=== PATIENT | female | born 1965 | race Two or more races ===

== ENCOUNTER 2023-11-06 14:51 | Emergency (ER) | payer OTHER ==
[~2023-11-06] VITALS: Ht 160 cm; Wt 86.2 kg
[2023-11-06] MEDS ORDERED: GUAIFENESIN 200 MG/10 ML BLIST.PACK PO STA (16:24)
[2023-11-06] MEDS ORDERED: CEFTRIAXONE SODIUM 1,000 MG VIAL IM STA (16:24)
[2023-11-06] MEDS ORDERED: KETOROLAC TROMETHAMINE 30 MG VIAL IM STA (16:24)
== END 2023-11-06 16:47 | disposition home or self-care (01) ==
LOC: ER 14:52
DX: R53.81 Other malaise (principal); R05.9 Cough, unspecified
CPT/HCPCS: 96372; 99282; J0696; J1885

== ENCOUNTER 2025-07-24 18:06 | Emergency (ER) | payer OTHER ==
[~2025-07-24] VITALS: Ht 160 cm; Wt 79.4 kg
[2025-07-24] MEDS ORDERED: FAMOTIDINE/PF 20 MG/2 ML VIAL IV ONE (19:45)
[2025-07-24] MEDS ORDERED: 0.9 % SODIUM CHLORIDE 500 ML IV ONE (19:45)
[2025-07-24] MEDS ORDERED: FAMOTIDINE/PF 20 MG/2 ML VIAL ONE (20:50)
[2025-07-24 21:27] LABS: BASO % 1.0 % (0.1-1.2); EOS # 0.11 (0.04-0.54); EOS % 2.8 % (0.7-7.0); LYMPH # 1.64 (1.18-3.74); LYMPH % 42.5 % (19.3-53.1); MEAN PLATELET VOLUME 10.10 fl (9.4-12.4); MONO # 0.28 (0.24-0.82); MONO % 7.3 % (4.7-12.5); NEUT # 1.77 (1.56-6.13); NEUT % 45.9 % (34.0-71.1); RED CELL DISTRIBUTION WIDTH 12.2 % (11.6-14.4)
[2025-07-24 22:14] LABS: ALT/SGPT 36.0 U/L (12-78); AST/SGOT 19.0 U/L (15-37); BILIRUBIN TOTAL 0.77 mg/dL (0.3-1.2); BUN CREA RATIO 17.0 (7.0-25.0); CREATININE SERUM 0.59 mg/dL (0.55-1.02); GFR 103.62; GLOBULINA 3.0 G/DL (2.4-3.5); GLUCOSE FASTING 96.0 mg/dL (65-100); OSMOLALITY SERUM 284.0 MOSM/KG (275-295); TSH 3.43 uIU/mL (0.358-3.74)
[2025-07-24 22:20] LABS: INR 1.02
[2025-07-24] MEDS ORDERED: MEDROLPACK PO (22:36)
[2025-07-24] MEDS ORDERED: PEPCID AC20 MG PO (22:36)
== END 2025-07-24 22:58 | disposition home or self-care (01) ==
LOC: ER 18:07
PROVIDERS: Student in an Organized Health Care Education/Training Program
DX: T50.995A Adverse effect of other drugs, medicaments and biological substances, initial encounter (principal); Y92.89 Other specified places as the place of occurrence of the external cause; R00.2 Palpitations